=== PATIENT | male | born 1975 | race African-American/Black ===

== ENCOUNTER 2017-11-27 21:17 | Emergency (ER) | payer OTHER ==
[2017-11-27 21:24] VITALS: BP 130/78; PULSE 76; TEMP 98.2; BMI 29.0
--- NOTE | 2017-11-27 22:15 | PDOC ---
History of Present Illness - General Chief Complaint: Injury Stated Complaint: BROKEN FINGER JOB INJURY Time Seen by Provider: 11/27/17 21:50 - History of Present Illness Initial Comments: 42-year-old male without comorbidities presents for evaluation of right middle finger pain after a box of tiles fell on the tip of his right middle finger while working today. 11/27/17 22:13 Past History - Past Medical History Allergies/Adverse Reactions: Allergies Allergy/AdvReac Type Severity Reaction Status Date / Time No Known Allergies Allergy Verified 11/27/17 21:24 Home Medications: Ambulatory Orders NK [No Known Home Medication] 11/27/17 - Suicide/Smoking/Psychosocial Hx Smoking History: Never smoked Have you smoked in the past 12 months: No Information on smoking cessation initiated: No Hx Alcohol Use: No Drug/Substance Use Hx: No Review of Systems - Review of Systems Musculoskeletal: Yes: See HPI All Other Systems: Reviewed and Negative *Physical Exam - Vital Signs Last Vital Signs Temp Pulse Resp BP Pulse Ox 98.2 F 76 16 130/78 99 11/27/17 21:21 11/27/17 21:21 11/27/17 21:21 11/27/17 21:21 11/27/17 21:21 - Physical Exam Comments: There is swelling at the tip of the right middle finger. FDS and FDP work independently. There is tenderness at the distal phalanx. There are no gross sensorimotor deficits. He is neurovascularly intact. 11/27/17 22:13 ED Treatment Course - RADIOLOGY Radiology Studies Ordered: Category Date Time Status FINGER(S) RIGHT [RAD] Stat Radiology 11/27/17 21:50 Taken Medical Decision Making - Medical Decision Making Radiographs today show an oblique keyon fracture of the right middle finger. A protective approximate was placed. Hand surgery follow-up was advised. 11/27/17 22:14 *DC/Admit/Observation/Transfer Diagnosis at time of Disposition: Finger fracture, right - Discharge Dispostion Disposition: HOME Condition at time of disposition: Stable Decision to Admit order: No - Referrals Referrals: Ishan Nicole MD [Staff Physician] - - Patient Instructions Printed Discharge Instructions: Finger Fracture, DI for Finger Fracture Additional Instructions: Return to the emergency room should symptoms worsen or go unresolved. Please keep the splint in place until you are seen by hand surgery. You may remove this point for hygiene. He should sleep and it. May take Tylenol and Motrin alternately for pain as directed. Follow-up with hand surgery in 2-3 days for further evaluation and treatment options. - Post Discharge Activity
== END 2017-11-27 22:21 | disposition home or self-care (01) ==
LOC: JERFT 21:17
DX: S62.662A Nondisplaced fracture of distal phalanx of right middle finger, initial encounter for closed fracture (principal); W20.8XXA Other cause of strike by thrown, projected or falling object, initial encounter; Y93.89 Activity, other specified; Y92.59 Other trade areas as the place of occurrence of the external cause; Y99.0 Civilian activity done for income or pay
CPT/HCPCS: 73140-TC-RT-FY; 99281-25